=== PATIENT | male | born 1990 | race Caucasian/White ===

== ENCOUNTER 2017-04-13 04:33 | Emergency (ER) | payer OTHER ==
[~2017-04-13] VITALS: Ht 167.6 cm; Wt 52.6 kg
[2017-04-13 04:43] VITALS: BP_SYST 134
[2017-04-13 05:33] VITALS: BP_SYST 131
== END 2017-04-13 05:33 | disposition home or self-care (01) ==
LOC: SED 04:33
DX: J06.9 Acute upper respiratory infection, unspecified (principal); Z91.013 Allergy to seafood
CPT/HCPCS: 36415; 86710; 99284

== ENCOUNTER 2019-04-10 13:59 | Emergency (ER) | payer OTHER ==
[~2019-04-10] VITALS: Ht 170.2 cm; Wt 57.2 kg
[2019-04-10 14:00] VITALS: BP_SYST 117
--- NOTE | 2019-04-10 14:00 | NUR ---
Patient triaged and placed in waiting room. VSS and patient appears in no acute distress at this time. Accompanied by MOTHER, awaiting available bed, and MD notified of need for MSE.
--- NOTE | 2019-04-10 15:04 | NUR ---
AFTER GETTING BLOOD DRAWN, PLACED IN BED #6 AND TRIAGED. REPORT GIVEN TO AKASH
--- NOTE | 2019-04-10 15:12 | NUR ---
Patient is awake, alert, and oriented x4. Patient called his doctor and they told him they think he may have intestinal bleeding and was instructed to come in to the ER. Patient reports small hard stools that were bright red, wiped with bright red results, abdominal cramping. Patient denies having hemorrhoids.
[2019-04-10 15:22] LABS: BASOPHILS % (AUTO) 0.8 % (0.0-2.0); EOSINOPHILS # (AUTO) 0.1 K/uL (0.0-0.4); EOSINOPHILS % (AUTO) 2.4 % (0.0-4.0); HEMATOCRIT 41.8 % (36-54); HEMOGLOBIN 14.4 g/dL (14.0-18.0); LYMPHOCYTES # (AUTO) 1.7 K/uL (1.0-5.5); LYMPHOCYTES % (AUTO) 32.9 % (20.5-51.5); MEAN CORPUSCULAR HEMOGLOBIN 31 pg (27-31); MEAN CORPUSCULAR HGB CONC 35 % (32-36); MEAN CORPUSCULAR VOLUME 89 fL (79.0-98.0); MONOCYTES # (AUTO) 0.2 K/uL (0.0-1.0); MONOCYTES % (AUTO) 4.3 % (1.7-9.3); NEUTROPHILS % (AUTO) 59.6 % (40.0-70.0); PLATELET COUNT (AUTO) 321 K/uL (130-430); RED BLOOD CELL COUNT(AUTO) 4.68 MIL/uL (4.2-6.2); RED CELL DISTRIBUTION WIDTH 12.8 % (9.0-15.0); WHITE BLOOD COUNT (AUTO) 5.1 K/uL (4.8-10.8)
[2019-04-10 15:27] LABS: CREATININE 0.86 mg/dL (0.55-1.30); POTASSIUM 3.9 mmol/L (3.5-5.1)
[2019-04-10 15:35] LABS: ALBUMIN 4.4 g/dL (3.4-4.8); TOTAL BILIRUBIN 1.5 mg/dL (0.0-1.0)
--- NOTE | 2019-04-10 15:35 | NUR ---
RIGOBERTO Robledo at bedside examining patient.
[2019-04-10] MEDS ORDERED: LACTULOSE 20 GM/30 ML UDC PO ONE (15:45)
[2019-04-10 15:58] VITALS: BP_SYST 117
--- NOTE | 2019-04-10 15:58 | NUR ---
Patient given written and verbal discharge instructions and verbalizes understanding. ER MD discussed with patient the results and treatment provided. Patient in stable condition. ID arm band removed. Rx of miralax given. Patient educated on pain management and to follow up with PMD. Pain Scale 0/10. Opportunity for questions provided and answered. Medication side effect fact sheet provided.
== END 2019-04-10 15:58 | disposition home or self-care (01) ==
LOC: SED 13:59
DX: K92.2 Gastrointestinal hemorrhage, unspecified (principal); K59.00 Constipation, unspecified; Z91.013 Allergy to seafood
CPT/HCPCS: 36415; 80053; 82272; 85025; 99283